=== PATIENT | female | born 2005 | race Caucasian/White ===

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

== ENCOUNTER → 2025-02-28 | Outpatient (REF) | payer OTHER ==
[2025-02-28 15:03] LABS: GC DNA AMPLIFICATION NEGATIVE (NEGATIVE)
== END ==
LOC: M SFHCADAM 12:49
PROVIDERS: ATTEND Physician Assistant
DX: Z91.89 Other specified personal risk factors, not elsewhere classified (principal)